=== PATIENT | female | born 1980 | race Two or more races ===

== ENCOUNTER 2025-03-17 18:20 | Emergency (ER) | payer MEDICAID, SELFPAY ==
[2025-03-17 18:26] VITALS: BP 146/74; PULSE 150; RESP 22; TEMP 39.5; O2SAT 97; BMI 43.9
--- NOTE | 2025-03-17 18:27 | EKG_ITS ---
[facility] Test Date: 2025-03-17 Pat Name: WAN JUAREZ Department: Room: - Gender: Female [employer] Forms: : 1980 Requested By: Andres Malhotra Order Number: [id number] Reading MD: Andres Malhotra Measurements Intervals [place] Rate: 145 P: 57 MD: 127 QRS: -4 QRSD: 78 T: 36 QT: 276 QTc: 429 Interpretive Statements SINUS TACHYCARDIA, POSSIBLE ATRIAL FLUTTER MINIMAL ST DEPRESSION [0.025+ mV ST DEPRESSION] ABNORMAL RHYTHM ECG No previous ECG available for comparison /store/S0/[id number]/[id number].pdf
--- NOTE | 2025-03-17 19:01 | XR_ITS ---
EXAMINATION: PA chest single view TECHNIQUE: Upright PA chest single view Date and time: March 17, 2025, 1914 hours, comparison July 23, 2018 INDICATIONS: Fever beginning 1 week ago. FINDINGS: Mild prominence left ventricle Probable fat pad at the left cardiophrenic angle No lobar pneumonia No pulmonary edema IMPRESSION: No lobar pneumonia or pulmonary edema
--- NOTE | 2025-03-17 19:01 | XR_ITS ---
Examination: CT abdomen and pelvis without contrast. Coronal 3-D reconstructions. Sagittal 2-D reconstructions. Date and time of exam: March 17, 2025, 2028 hours, comparison October 04, 2022 INDICATIONS: Lower abdominal pain with burning with urination beginning 2 days ago CTDI: vol (mGy): 14.6 DLP: (mGycm): 869 869 Technique: Axial images of the abdomen have been obtained, 3 mm slice thickness Intravenous contrast material has not been administered. Low dose protocols were performed. One or more of the following dose reduction techniques were used; automated exposure control, adjustment of the mA and/or KV according to patient size, use of iterative reconstruction technique. Findings: Diffuse fatty infiltration throughout the liver, mild hepatomegaly 22 cm, splenomegaly 14 cm 4 x 3.8 cm upper right lobe liver lesion again depicted, mildly indistinct margins No pancreatic or adrenal mass Hyperdense gallbladder with gallstones No pancreatic or adrenal mass Right perinephric stranding Normal appendix No bowel obstruction No ureteral calculi Aorta normal size 16 mm umbilical hernia containing incarcerated fat No bowel obstruction Minimal thickening of the urinary bladder wall No pelvic mass Mild to moderate diffuse lumbar disc narrowing most prominent at L3-L4 IMPRESSION: Hepatosplenomegaly 4 cm upper lateral right lobe liver lesion, differential would include primary pelvis cellular carcinoma, hepatic metastasis, recommend MRI abdomen liver follow-up pre and postcontrast Right perinephric stranding, consider urinary tract infection, no hydronephrosis or ureteral calculi Normal appendix 16 mm fat-containing umbilical hernia, containing incarcerated fat Minimal cystitis pattern
--- NOTE | 2025-03-17 19:25 | PD.EDFEVER ---
ED Fever RME/HPI General Chief Complaint: Urogenital-Female Stated Complaint: PULSE 172; URINARY BURN/URGENCY/FREQ; FLANK PAIN Arrival date/time: 03/17/25 18:20 RME / HPI RME / HPI Narrative: See MDM for Dr. Padron's HPI Documentation. Related Data Previous Rx's ?Medication ?Instructions ?Recorded omeprazole 20 mg capsule,delayed 20 mg PO QDAY #30 caps 07/23/18 release cefdinir 300 mg capsule 300 mg PO BID #14 caps 03/17/25 ibuprofen 800 mg tablet 800 mg PO Q8H PRN pain #30 tabs 03/17/25 ondansetron 4 mg disintegrating 4 mg PO TID PRN nausea and 03/17/25 tablet vomiting 30 days #10 tabs sitagliptin phosphate 50 1 tab PO BID #60 tabs 03/17/25 mg-metformin 1,000 mg tablet (Janumet) Allergies Allergy/AdvReac Type Severity Reaction Status Date / Time No Known Allergies Allergy Verified 03/17/25 18:24 Review of Systems Review of Systems Systems Reviewed: All systems reviewed, normal except as documented Past Medical History Past Medical History GASTROINTESTINAL: Positive Gall Bladder Disease (gall stones), Colitis (also proctitis), Ulcerative Colitis, Diverticulitis and Gastroesophageal Reflux Disease GENITOURINARY: Positive Genitourinary Disorders (urinary fistula) REPRODUCTIVE: Positive Previous Pregnancies (ectopic ) ENDOCRINE: Positive Endocrine Disorders and Diabetes Mellitus Type 2 HEMATOLOGIC: Positive Blood Disorders and Anemia OTHER HISTORY: Positive Blood Transfusions Family History FAMILY HISTORY: Positive Family Cardiac Disorders (father, PR, hypertension, mother-hypertension, high cholesterol) and Family Gastrointestinal Problems (mother- cholecystectomy) Physical Exam Narrative Physical exam: See MDM for Dr. Padron's Physical Exam Documentation. ED Exam Narrative Physical exam: See MDM for Dr. Padron's Physical Exam Documentation. Course Quality Measures none Orders Category Date Time Status Bedside COVID-19 Antigen Test NOW Care 03/17/25 19:00 Completed EKG (ED ONLY) *Do not use* NOW Care 03/17/25 18:27 Completed Saline [Insert IV] NOW Care 03/17/25 19:00 Completed Straight [In and Out Catheter] X1 Care 03/17/25 19:[address] abdomen pelvis wo con Stat Exams 03/17/25 19:01 Completed EKG (ED Only) Stat Exams 03/17/25 18:27 Draft XR chest 1V portable Stat Exams 03/17/25 19:01 Completed Amylase Stat Lab 03/17/25 19:25 Completed BNP [B-Type Natriuretic Peptide] Stat Lab 03/17/25 19:25 Completed Bilirubin,Direct Stat Lab 03/17/25 19:25 Completed Blood Culture (Lab) Stat Lab 03/17/25 19:35 Received CBC Stat Lab 03/17/25 19:25 Completed CMP [Comprehensive Metabolic Panel] Stat Lab 03/17/25 19:25 Completed CRP [C-Reactive Protein] Stat Lab 03/17/25 19:25 Completed D-Dimer Stat Lab 03/17/25 19:25 Completed ESR [Sed Rate (ESR)] Stat Lab 03/17/25 19:25 Completed HCG,Qualitative Serum Stat Lab 03/17/25 19:25 Completed Hemoglobin A1C [Glycohemoglobin w (eAG)] Stat Lab 03/17/25 19:25 Completed Influenza A & B Rapid Panel Stat Lab 03/17/25 19:14 Completed Lactate (Lactic Acid) Stat Lab 03/17/25 19:25 Completed Lipase Stat Lab 03/17/25 19:25 Completed Magnesium Stat Lab 03/17/25 19:25 Completed Path Review Blood Smear Stat Lab 03/17/25 19:25 Completed Procalcitonin Stat Lab 03/17/25 19:25 Completed TSH [Thyroid Stimulating Hormone] Stat Lab 03/17/25 19:25 Completed Troponin I Stat Lab 03/17/25 19:25 Completed UA, C/S IF [Urinalysis, C/S if Indicated] Stat Lab 03/17/25 21:10 Completed Acetaminophen Tab [Tylenol ES Tab] Med 03/17/25 19:00 Discontinued 1,000 mg PO X1 ONE Insulin Regular Med 03/17/25 22:24 Discontinued 5 unit SC X1 ONE Insulin Regular Med 03/17/25 21:43 Discontinued 8 unit SC X1 ONE Ketorolac Inj [Toradol Inj] Med 03/17/25 19:00 Discontinued 30 mg IVP X1 ONE Ondansetron Inj [Zofran Inj] Med 03/17/25 19:00 Discontinued 4 mg IVP X1 ONE Sodium Chloride 0.9% 1000 ml [Ns] 1,000 ml Med 03/17/25 19:00 Discontinued IV 999 mls/hr Sodium Chloride 0.9% 1000 ml [Ns] 1,000 ml Med 03/17/25 21:45 Discontinued IV 999 mls/hr cefTRIAXone/D5w 1gm IV premix [Rocephin/D5w 1gm IV Med 03/17/25 19:00 Discontinued premix] 1 gm in 50 ml IV X1 cefTRIAXone/D5w 1gm IV premix [Rocephin/D5w 1gm IV Med 03/17/25 22:48 Discontinued premix] 50 ml IV X1 Vital Signs Vital signs: Vital Signs Temperature 103.1 F H 03/17/25 18:26 Pulse Rate 150 H 03/17/25 18:26 Respiratory Rate 22 H 03/17/25 18:26 Blood Pressure 146/74 H 03/17/25 18:26 Pulse Oximetry (%) 97 03/17/25 18:26 Oxygen Delivery Method Room Air 03/17/25 18:26 Fever MDM Narrative MDM Narrative:: This section includes all my notes and documentations, including HPI, PE, and ED course. Andres Padron MD HPI: 44 y/o female with Hx of Type II DM (noncompliant) here with subjective fever, chills, dysuria, body aches, and back pain x several days. No other complaints. ROS: All negative except as documented in HPI. Physical Exam: General: Alert and oriented. No acute distress when remaining still. High fever noted. Eyes: Conjunctivae and lids clear. ENT: No nasal congestion. Pharynx normal. TM normal bilaterally. Neck: Supple. Heart: Tachycardia with regular rhythm. Lungs: No respiratory distress. Good air movement. No rhonchi, wheezing, rales. Abdomen: Soft and nontender. Normal bowel sounds. No distension. No rebound or guarding. Back: No CVA tenderness. Skin: Warm and dry. Neuro: Alert and oriented X 3. I reviewed all diagnostic test results: My interpretation of the EKG is: Sinus tachycardia (145 bpm) with nonspecific ST-T changes. My interpretation of the chest x-ray is: NAD. My review of the CT report is NAD. Blood tests remarkable for ESR 118, Glu 280, Hgb A1C 10.6%, CRP 22.5. UA showed leukocyte esterase, 47 RBC, 1639 WBC, and bacteria. Covid/Influenza: Negative. At this point, diagnoses include: UTI (urinary tract infection) Poorly controlled diabetes mellitus Treatment here included: IVF Zofran 4 mg IV Toradol 30 mL IV Oral Tylenol 1000 mg Rocephin 1 G IV Insulin 5 units SC Significant improvement noted. Recommended a trial of outpatient treatment. Based on my best medical judgment, made decision no further evaluation or treatment indicated at this time. Patient understands and agrees to the discharge instructions customized and printed, see below. Discharge instructions from Dr. Padron: 1. After evaluation, you have severe UTI (early kidney infection). 2. Take cefdinir to kill the germs causing the infection. 3. For good hydration, increase oral fluid and maintain clear urine. If dark or yellow, increase oral fluid. Zofran for nausea/vomiting. 4. Tylenol 1000 mg alternating with ibuprofen 800 mg every 4 hours today and tomorrow scheduled. Then as needed for fever/pain. 5. For diabetes, take Janumet as prescribed. To prevent severe complications from diabetes, some fatal, we need to control your diabetes better. 6. See a private doctor on 03/20/2025. Ask to check the final urine culture results from today to make sure cefdinir doesn't need to be changed due to resistance. Ask for help with good management of your diabetes. 7. Seek immediate medical care with worsening, fever, or with any concerns. Andres Padron MD Patient data External records reviewed:: [facility] previous records (Reviewed prior ED records from 04/23/23. Patient was seen for Acute knee pain.) Clinical information provided by:: patient Social determinants that could affect healthcare access:: none Patient has the following chronic illnesses:: Gall stones, Colitis, Proctitis, Ulcerative Colitis, Diverticulitis, Gastroesophageal Reflux Disease, Urinary Fistula, Diabetes Mellitus Type 2, Anemia How is presenting disease/condition affected by chronic disease/condition?: exacerbated by Evaluation data The following diagnostics were reviewed and interpreted by me:: lab results, radiology exam(s) and EKG tracing(s) (My interpretation of the EKG is: Sinus tachycardia (145 bpm) with nonspecific ST-T changes. Andres Padron MD) Lab and/or radiology exams considered but not ordered:: None Interpretation Summary: I reviewed all diagnostic test results: My interpretation of the EKG is: Sinus tachycardia (145 bpm) with nonspecific ST-T changes. My interpretation of the chest x-ray is: NAD. My review of the CT report is NAD. Blood tests remarkable for ESR 118, Glu 280, Hgb A1C 10.6%, CRP 22.5. UA showed leukocyte esterase, 47 RBC, 1639 WBC, and bacteria. Covid/Influenza: Negative. Medications / Prescriptions Medications or Prescriptions considered but not ordered:: None Medication administrations:: Medication Administration History Discontinued Medications Acetaminophen (Acetaminophen 500 Mg Tablet) 1,000 mg PO X1 ONE Stop: 03/17/25 19:01 Last Admin: 03/17/25 21:00 Dose: 1,000 mg Documented By: CCT Sodium Chloride (Ns) 1,000 mls @ 999 mls/hr IV .Q1H1M ONE Stop: 03/17/25 20:00 Last Infusion: 03/17/25 22:00 Dose: Infused Documented By: Admin: 03/17/25 20:59 Dose: 999 mls/hr Documented By: CCT Ceftriaxone Sodium/Dextrose (Rocephin/D5w 1gm Iv Premix) 1 gm in 50 mls @ 100 mls/hr IV X1 ONE Stop: 03/17/25 19:29 Last Infusion: 03/17/25 21:30 Dose: Infused Documented By: Admin: 03/17/25 20:58 Dose: 100 mls/hr Documented By: CCT Sodium Chloride (Ns) 1,000 mls @ 999 mls/hr IV .Q1H1M ONE Stop: 03/17/25 22:45 Last Infusion: 03/17/25 23:30 Dose: Infused Documented By: Admin: 03/17/25 22:26 Dose: 999 mls/hr Documented By: CCT Ceftriaxone Sodium/Dextrose (Rocephin/D5w 1gm Iv Premix) 50 mls @ 100 mls/hr IV X1 ONE Stop: 03/17/25 23:17 Insulin Human Regular (Insulin Hum Regular 1 Unit/0.01 Ml (Per Unit)) 8 unit SC X1 ONE Stop: 03/17/25 21:44 Last Admin: 03/17/25 22:24 Dose: Not Given Documented By: CCT Non-Admin Reason: Cancelled by Provider Insulin Human Regular (Insulin Hum Regular 1 Unit/0.01 Ml (Per Unit)) 5 unit SC X1 ONE Stop: 03/17/25 22:25 Last Admin: 03/17/25 22:44 Dose: 5 unit Documented By: CCT Co-signed By: TOYIN Ketorolac Tromethamine (Ketorolac Inj 30 Mg/Ml Vial) 30 mg IVP X1 ONE Stop: 03/17/25 19:01 Last Admin: 03/17/25 20:59 Dose: 30 mg Documented By: CCT Ondansetron HCl (Ondansetron Inj 2 Mg/Ml Inj 2 Ml) 4 mg IVP X1 ONE; Protocol Stop: 03/17/25 19:01 Last Admin: 03/17/25 20:59 Dose: 4 mg Documented By: CCT Treatment here included: IVF Zofran 4 mg IV Toradol 30 mL IV Oral Tylenol 1000 mg Rocephin 1 G IV Insulin 5 units SC Consultations Consultation(s) initiated? (list below): No Diagnosis Fever Differential Diagnosis: fever of unknown origin, pyelonephritis, sepsis and other (UTI, Cystitis) Most likely diagnosis given after review of the tests above:: UTI (urinary tract infection) Poorly controlled diabetes mellitus Admission Indicated Admission indicated?: not indicated Explain why admission is indicated or not indicated:: With significant improvement and no condition needing emergent intervention, there was no indication for admission. Admission Request Was there a request for admission?: No Disposition Plan Disposition Plan: Discharge Discharge Attestation Discharge Attestation: The patient and all family members were given an opportunity to ask questions and understood the discharge instructions. Discharge instructions specifically effects, indications for sooner follow up or return to the emergency department, and the expected course of current diagnosis. Patient condition: Stable Discharge Plan Plan Patient Disposition: HOME (Self Care) Prescriptions/Referrals Prescriptions/Med Rec: New ibuprofen 800 mg tablet 800 mg PO Q8H PRN (Reason: pain) Qty: 30 0RF ondansetron 4 mg tablet,disintegrating 4 mg PO TID PRN (Reason: nausea and vomiting) 30 Days Qty: 10 0RF cefdinir 300 mg capsule 300 mg PO BID Qty: 14 0RF Janumet 50-1,000 mg tablet 1 tab PO BID Qty: 60 0RF No Action omeprazole 20 mg capsule,delayed release(DR/EC) 20 mg PO QDAY Qty: 30 0RF Referrals: No Primary/Family,Physician [Primary Care Provider] - In 1 week Problem List Clinical Impression: UTI (urinary tract infection), Poorly controlled diabetes mellitus Patient/Caregiver Discharge Instructions Discharge Activity: activity as tolerated Education Materials: ED Diabetes- Overview, ED CYSTITIS Female Adult Additional Instructions: Discharge instructions from Dr. Padron: 1. After evaluation, you have severe UTI (early kidney infection). 2. Take cefdinir to kill the germs causing the infection. 3. For good hydration, increase oral fluid and maintain clear urine. If dark or yellow, increase oral fluid. Zofran for nausea/vomiting. 4. Tylenol 1000 mg alternating with ibuprofen 800 mg every 4 hours today and tomorrow scheduled. Then as needed for fever/pain. 5. For diabetes, take Janumet as prescribed. To prevent severe complications from diabetes, some fatal, we need to control your diabetes better. 6. See a private doctor on 03/20/2025. Ask to check the final urine culture results from today to make sure cefdinir doesn't need to be changed due to resistance. Ask for help with good management of your diabetes. 7. Seek immediate medical care with worsening, fever, or with any concerns. Print Language: Cambodian Stand Alone Forms: Veronica Award Info., Patient Portal Info Letter
[2025-03-17 19:47] LABS: Lactate (Lactic Acid) 1.9 mMol/L (0.4-2.0)
[2025-03-17 19:54] LABS: Basophils # (Auto) 0.0 Thou/mm3 (0.0-0.2); Basophils % (Auto) 1 % (0-2.5); Eosinophils # (Auto) 0.0 Thou/mm3 (0.0-0.5); Eosinophils % (Auto) 0 % (0-10); Hematocrit 34.1 % (36.0-46.0); Hemoglobin 10.2 g/dL (12.0-16.0); Immature Granulocytes Auto 0.03 Thou/mm3 (0.00-0.00); Lymphocytes # (Auto) 1.0 Thou/mm3 (1.0-4.8); Lymphocytes % (Auto) 16 % (10-50); Mean Corpuscular HGB Conc 29.9 g/dl (31.0-37.0); Mean Corpuscular Hemoglobin 19.8 pg (25.0-35.0); Mean Corpuscular Volume 66 fL (80-100); Monocytes # (Auto) 0.4 Thou/mm3 (0.0-0.8); Monocytes % (Auto) 7 % (0-12); Neutrophils # (Auto) 4.7 Thou/mm3 (1.8-7.7); Neutrophils % (Auto) 77 % (37-80); Nucleated Red Blood Cell # 0.00 Thou/mm3 (0.00-0.00); Nucleated Red Blood Cell % 0 /100 WBC (0); Platelet Count 243 Thou/mm3 (140-440); RDW Standard Deviation 43.2 fL (36.4-46.3); Red Blood Count 5.15 Miln/mm3 (4.00-5.20); White Blood Count 6.1 Thou/mm3 (3.6-11.0)
[2025-03-17 20:03] LABS: HCG,Qualitative Serum Negative
[2025-03-17 20:06] LABS: Sed Rate (ESR) 118 mm/hr (0-20)
[2025-03-17 20:08] LABS: B-Type Natriuretic Peptide < 20 pg/mL (0-100); Path Review Blood Smear Sent to Pathologist
[2025-03-17 20:21] LABS: Alanine Aminotransferase 20 U/L (10-49); Albumin, Serum 4.8 gm/dL (3.5-5.0); Albumin/Globulin Ratio 1.5 (1.2-2.2); Alkaline Phosphatase 98 U/L (46-116); Amylase 20 U/L (30-118); Anion Gap 10 (7-16); Aspartate Amino Transferase 27 U/L (0-34); BUN/Creatinine Ratio 7 Ratio (12-20); Bilirubin,Direct 0.2 mg/dL (0.0-0.3); Bilirubin,Total 0.4 mg/dL (0.3-1.2); Blood Urea Nitrogen 8 mg/dL (9-23); C-Reactive Protein 22.5 mg/dL (0.0-0.9); Calcium 9.6 mg/dL (8.3-10.6); Calcium (Corrected) 9.6 mg/dL (8.5-10.1); Carbon Dioxide 23.3 mMol/L (20.0-31.0); Chloride 100 mMol/L (98-107); Creatinine (Component) 1.1 mg/dL (0.6-1.3); Estimated Creatinine Clearance 75.0 mL/min (>60); Globulin 3.1 gm/dL (2.3-3.5); Glucose 280 mg/dL (74-106); Lipase 25 U/L (12-53); Magnesium 1.7 mg/dL (1.6-2.6); Osmolality,Calculated 274 (275-295); Potassium 4.1 mMol/L (3.4-5.1); Procalcitonin 0.36 ng/ml (0.0-0.49); Sodium 133 mMol/L (136-145); Thyroid Stimulating Hormone 1.81 uIU/mL (0.55-4.78); Total Protein 7.9 gm/dL (5.7-8.2); Troponin I < 0.002 ng/mL (0.0-0.045); eGFR > 60 See Note
[2025-03-17 20:22] LABS: D-Dimer 1170 ng/mL (<600); Glucose Estimated Average 258 mg/dL (80-131); Hemoglobin A1C 10.6 % Hgb (4.8-6.0)
[2025-03-17 20:44] LABS: Influenza A Ag Negative; Influenza B Ag Negative
[2025-03-17] MEDS: cefTRIAXone/D5w 1gm IV premix 1 GM/50 ML BAG IV (20:58)
[2025-03-17] MEDS: KETOROLAC INJ 30 MG/ML VIAL IVP (20:59)
[2025-03-17] MEDS: SODIUM CHLORIDE 0.9% 1000 ML 1,000 ML 999 ML IV ×2 (20:59→22:26)
[2025-03-17] MEDS: ONDANSETRON INJ 2 MG/ML INJ 2 ML 4 MG IVP (20:59)
[2025-03-17 21:00] VITALS: TEMP 39
[2025-03-17] MEDS: ACETAMINOPHEN 500 MG TABLET 1000 MG PO (21:00)
[2025-03-17 21:23] LABS: Collection Type, Urine Clean Catch
[2025-03-17 21:32] LABS: Bacteria,Urine Rare; Bilirubin,Urine Negative (Negative); Blood,Urine 2+ (Negative); Clarity,Urine Turbid (Clear/Hazy); Color,Urine Yellow (Lt Yel-Yel); Culture Indicated,Urine Contaminated; Glucose, Urine 1+ (Negative); Ketones,Urine Trace (Negative); Leukocyte Esterase,Urine Positive (Negative); Nitrite,Urine Negative (Negative); PH,Urine 6.5 (5.0-7.0); Protein,Urine 2+ (Neg - Trace); RBC,Urine 47 /hpf (0-3); Specific Gravity,Urine 1.019 (1.001-1.035); Squamous Epithelial Cell,Urine 12 /hpf (0-5); Urobilinogen,Urine 6.0 mg/dL (0.0-1.0); WBC,Urine 1639 /hpf (0-5)
[2025-03-17 21:45] VITALS: BP 137/66; PULSE 110; RESP 20; TEMP 38.3; O2SAT 97
[2025-03-17] MEDS: INSULIN HUM REGULAR 1 UNIT/0.01 ML (PER UNIT) 5 UNIT SC (22:44)
[2025-03-18 00:20] VITALS: BP 109/63; PULSE 81; RESP 17; TEMP 36.6; O2SAT 98
== END 2025-03-18 00:20 | disposition home or self-care (01) ==
PROVIDERS: Emergency Provider Emergency Medicine
DX: N39.0 Urinary tract infection, site not specified (principal); E11.65 Type 2 diabetes mellitus with hyperglycemia; Z79.84 Long term (current) use of oral hypoglycemic drugs
CPT/HCPCS: 36415; 71045; 74176; 80053; 81001; 82150; 82248; 83036; 83605; 83690; 83735; 83880; 84145; 84443; 84484; 84703; 85025; 85379; 85652; 86140; 87040; 87502; 87635; 93005; 96361; 96365; 96375; 99284; J0696; J1815; J1885; J2405; J7030; A9270